=== PATIENT | female | born 1935 | race Caucasian/White ===

== ENCOUNTER → 2025-06-22 10:27 | Outpatient (REF) | payer MEDICARE, SELFPAY ==
[2025-06-22 11:22] LABS: ALT (SGPT) 19 U/L (0-35); AST (SGOT) 25 U/L (14-36); Albumin 4.7 g/dl (3.5-5.0); Alkaline Phosphatase 77 U/L (38-126); Blood Urea Nitrogen 18 mg/dl (7-17); Calcium 10.9 mg/dl (8.4-10.2); Carbon Dioxide 26 mmol/L (22-30); Chloride 102 mmol/L (98-107); Glucose 95 mg/dl (70-99); Hematocrit 47.0 % (37.0-47.0); Hemoglobin 15.7 g/dL (12.0-16.0); Magnesium 2.0 mg/dl (1.6-2.3); Mean Corp Hgb Conc. 33.4 g/dL (33.0-37.0); Mean Corpuscular Volume 86.4 fL (81.0-99.0); Nucleated Red Blood Cells % 0 %; Platelet Count 184 10^3/uL (130-400); Potassium 4.3 mmol/L (3.5-5.1); Red Cell Dist. Width 13.2 % (11.5-14.5); Sodium 136 mmol/L (135-145); Total Protein 7.7 g/dl (6.3-8.2); eGFR > 60.00
[2025-06-22 11:37] LABS: INR 1.39; PT 17.3 Sec (11.4-14.6)
--- NOTE | 2025-06-22 14:15 | VATNOTE ---
pt with poor venous access. unable to establish line for iv contrast. 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 unable to thread wire past approx 7cm in either arm. pt pleasant, tech
aware of the aforementioned.
== END ==
LOC: SDSPAT 10:27
PROVIDERS: ATTENDING PHYSICIAN Internal Medicine Cardiovascular Disease; FAMILY PHYSICIAN General Practice; OTHER PHYSICIAN Internal Medicine Cardiovascular Disease
DX: I48.0 Paroxysmal atrial fibrillation (principal)
CPT/HCPCS: 36415; 80053; 83735; 85025; 85610; 86850; 86900; 86901; 93005

== ENCOUNTER 2025-07-15 05:53 | Day surgery (SDC) | payer MEDICARE, SELFPAY ==
[2025-06-22 10:52] VITALS: BMI 32.3
[2025-07-15] VITALS (12 sets, daily range): BP systolic 106–169; BP diastolic 58–91; BMI 31.5
[2025-07-15] MEDS: TYLENOL 1000 MG PO (07:07)
[2025-07-15 08:50] LABS: ACT-LR - POC 390 Seconds (116-155)
--- NOTE | 2025-07-15 09:14 | ITS.CL.ABL ---
[facility]ist - Ablation
Ablation
Procedure Report:
ELECTROPHYSIOLOGY ABLATION STUDY
DATE:: July 15, 2025 REFERRING: Dr. Sohan Keith
INDICATION: Persistent supraventricular tachycardia in the form of atrial fibrillation. Also has demonstrated unspecified atrial flutter in the past which appears atypical on review of all available ECG
HISTORY: See H and P. As above
ANTIARRHYTHMIC DRUG: Flecainide
PRE-PROCEDURE SHUN: No atrial thrombus on intracardiac ultrasound
PRESENTING RHYTHM: Atrial fibrillation which was somewhat organized but with a frequency gradient favoring left atrium and atrial fibrillation documented in the left atrium.
'TIME-OUT': called and confirmed.
SEDATION/ANESTHESIA: provided via the anesthesia department using general anesthesia (LMA).
INTRAVENOUS/ARTERIAL ACCESS:
Right femoral venous -8Fr
Left femoral venous - 8 Fr, 6 Fr
Sbijhn-jx-czpek suture bilaterally
Ultrasound guidance for bilateral femoral vein access was utilized by me to obtain access with demonstration of normal anatomy
CHADS-VASC Score:
HAS-Bled Score
PROCEDURE:
1. A decapolar CS catheter was placed within the CS for mapping and pacing. This was also used as the reference catheter for the 3-D map.
2. The intracardiac ultrasound catheter was positioned in the RA to identify the FO for targeting of transseptal puncture, assist in identification of the pulmonary vein ostia, monitoring pre and post ablation pulmonary vein flow velocities,
monitoring for 'bubble' formation during RF application as a sign of thermal injury, and to monitor for pericardial effusion during mapping and ablation procedure. Left atrial size, LV ejection fraction, and pulmonary vein flows were monitored
pre and post ablation procedure. The other valves were inspected and found to be free of significant regurgitation or stenosis.
3. Half of the calculated heparin bolus was administered prior to the first transeptal puncture. Transseptal puncture was performed to diagnose RA and LA pressure so that safety of LA mapping and ablation could be further assessed, and to access
the left atrium and pulmonary veins for mapping and ablation. This entailed advancing an 10 Urdu steerable sheath with dilator into the superior vena cava and withdrawing both (monitoring intracardiac ultrasound, fluoroscopy and tip pressure)
with the tip oriented toward the atrial septum. The fossa ovalis was engaged (indicated by sudden displacement of the sheath tip as well as tenting of the fossa seen on intracardiac ultrasound). Left atrial access required a pass with the
Brockenbrough needle extended. Left atrial catheter position was confirmed by pressure monitoring (RA mean pressure 8 mm Hg and LA mean pressure 14 mm Hg), LA saturation (99%), as well as fluoroscopy. The sheath was advanced over the dilator and
positioned in the left atrium. This procedure was repeated for the Agilis sheath. The remainder of the calculated heparin bolus was administered and heparin was
infused to maintain ACT at 300 -350 seconds throughout the case.
4. RA pacing was performed via the proximal decapolar poles and LA pacing was performed via the distal decapolr poles.
5. A quadrapolar catheter was first positioned at the His position for His Bundle recording which was tagged via the 3-D Navex sytem, and then passed to the RVA for RV pacing and recording.
6. The 9 mm lattice was placed in each of the LIPV, LSPV, RSPV and the RIPV.
7. Next, a 3-D map was created using Navex. A 3-D reconstructed CT image was compared to the 3-D Navex map to assist in anatomic interpretation, mapping and ablation. The CT image and the NavX image were fused.
8. Wide wrangell ablation around the left pulmonary veins and right pulmonary veins was performed first bringing about entrance block in all 4 pulmonary veins. Atrial fibrillation persisted and a posterior wall box lesion set with a roofline and
floor line and substrate ablation in the posterior wall was then performed rendering entrance block in the posterior wall as well. The patient was cardioverted to sinus rhythm and entrance and exit block was confirmed in all 4 pulmonary veins as
well as electrical silence in the posterior wall. The patient had transient paroxysmal atrial tachycardia with spontaneous conversion which was entrained from the right atrium which was out of the circuit and cycle length was quite variable. As
this was nonsustained and post ablation EP study could not induce any other tachyarrhythmias the procedure was ended. Roofline floor line and posterior wall substrate were performed in the posterior wall.
9. Normal sinus node function. AV Wenke block at 430 ms under anesthesia.
TOTAL FLOURO TIME: 11.8 minutes 82.3 mGy
TOTAL RF DURATION: 0 minutes
REVERSAL OF HEPARIN: 40 mg of protamine, slow IV administration
COMPLICATIONS:
None
Intracardiac US shows no pericardial effusion post ablation.
SUMMARY:
Complex left atrial mapping and ablation.
Isolation of all 4 pulmonary veins as well as the posterior wall as above.
RECOMMENDATIONS:
1. Ambulate in 4 hours
2. Resume anticoagulation
3. Discontinue flecainide but continue Bystolic
4. Consider same-day discharge
Copy to: Dr. Sohan Keith
[2025-07-15] MEDS: ANESTHETIC LOZENGE 1 LOZENGE PO (09:56)
--- NOTE | 2025-07-15 14:07 | W.PN.UPDATE ---
Update Note
Progress Note Update
89yo WF s/p PVI and aflutter ablation (same day). She denies cp, sob, sary diet, voiding, amb w/o dizziness, EKG SR with occ PAC's, b/l groins c/d/i no HT, soft. She will resume Eliquis tonight and stop flecainide, continue bystolic. Activity
restrictions reviewed. She will f/u Dr. Keith in 3 mo. She is for d/c home after 2p.
== END 2025-07-15 14:14 | disposition home or self-care (01) ==
LOC: CATH 05:53
PROVIDERS: ATTENDING PHYSICIAN Internal Medicine Cardiovascular Disease; FAMILY PHYSICIAN General Practice; OTHER PHYSICIAN Internal Medicine Cardiovascular Disease
DX: I48.19 Other persistent atrial fibrillation (principal); I48.92 Unspecified atrial flutter; Z79.890 Hormone replacement therapy; Z79.899 Other long term (current) drug therapy; I10 Essential (primary) hypertension; E78.5 Hyperlipidemia, unspecified; G47.33 Obstructive sleep apnea (adult) (pediatric); M35.3 Polymyalgia rheumatica; M19.90 Unspecified osteoarthritis, unspecified site; Z96.641 Presence of right artificial hip joint; E03.9 Hypothyroidism, unspecified; E21.0 Primary hyperparathyroidism; E66.9 Obesity, unspecified; Z68.32 Body mass index [BMI] 32.0-32.9, adult; I44.0 Atrioventricular block, first degree; I47.10 Supraventricular tachycardia, unspecified; R53.82 Chronic fatigue, unspecified; Z79.01 Long term (current) use of anticoagulants; I49.1 Atrial premature depolarization; Z90.710 Acquired absence of both cervix and uterus; Z90.722 Acquired absence of ovaries, bilateral; Z98.42 Cataract extraction status, left eye; Z98.41 Cataract extraction status, right eye
CPT/HCPCS: C1733; C1894; C1730; C1766; C1769; C1892; C1759; 85347; 86900; 86901; 93005; 93656; 93657